=== PATIENT | female | born 1965 | race Caucasian/White ===

== ENCOUNTER 2019-08-12 10:49 | Emergency (ER) | payer OTHER ==
[2019-08-12] MEDS ORDERED: LORazepam 2 MG/ML SDV IVPUSH ONE (10:56)
[2019-08-12] MEDS ORDERED: Haloperidol Lactate 5 MG/ML SDV IVPUSH ONE (10:56)
[2019-08-12] MEDS ORDERED: diphenhydrAMINE 50 MG/ML SDV IVPUSH ONE (10:56)
[2019-08-12] MEDS ORDERED: Metoprolol Tartrate 5 MG/5 ML SDV IVPUSH ONE (10:57)
[2019-08-12] MEDS ORDERED: Ketorolac 60 MG/2 ML SDV IM ONE (11:21)
--- NOTE | 2019-08-12 11:27 | EDM.PDOC ---
ED HPI GENERAL MEDICAL PROBLEM - General Chief Complaint: Lower Extremity Injury/Pain Stated Complaint: LT ANKLE PAIN Time Seen by Provider: 08/12/19 11:10 Source of Information: Reports: Patient History Limitations: Reports: Other (no old records) - History of Present Illness INITIAL COMMENTS - FREE TEXT/NARRATIVE: 54 yo female from [facility] presents with onset 2 days ago of redness, pain, and swelling of her medial L ankle area. She has been taking ibuprofen 800 mg every 6 hrs for this with her last dose before bed last night. Her problem is slightly better now than it was. She denies injury. No hx of the same. No hx of gout or known FHx of gout. Area even sensitive to light touch. Onset: Sudden Onset Date: 08/10/19 Duration: Day(s): (2), Improving Location: Reports: Lower Extremity, Left Quality: Reports: Sharp Severity: Moderate Improves with: Reports: Rest Worsens with: Reports: Movement (or touching area) Context: Reports: Other (See HPI) Associated Symptoms: Reports: Rash (red area medial L ankle and foot). Denies: Diaphoresis, Fever/Chills, Nausea/Vomiting Treatments [employer]: Reports: NSAIDS Left Ankle Pain Score (Numeric/FACES): 5 - Related Data Allergies Allergy/AdvReac Type Severity Reaction Status Date / Time Sulfa (Sulfonamide Allergy Rash Verified 08/12/19 11:08 Antibiotics) Home Meds: Home Meds cephALEXin [Cephalexin] 500 mg PO Q6H #36 capsule 08/12/19 [Rx] estradioL [Estradiol] 1 mg PO DAILY 08/12/19 [History] Past Medical History HEENT History: Reports: None Cardiovascular History: Reports: None Respiratory History: Reports: None Gastrointestinal History: Reports: Cholelithiasis 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: vaginal 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 Musculoskeletal History: Reports: None Neurological History: Reports: None Psychiatric History: Reports: None Endocrine/Metabolic History: Reports: None Hematologic History: Reports: None Immunologic History: Reports: None Oncologic (Cancer) History: Reports: None Dermatologic History: Reports: None - Infectious Disease History Infectious Disease History: Reports: None - Past Surgical History GI Surgical History: Reports: Appendectomy, Cholecystectomy Female Surgical History: Reports: Hysterectomy, Salpingo-Oophorectomy, Other (See Below) Other Female Surgeries/Procedures: bladder sling Social & Family History - Tobacco Use Smoking Status *Q: Never Smoker - Caffeine Use Caffeine Use: Reports: Coffee - Recreational Drug Use Recreational Drug Use: No Review of Systems - Review of Systems Review Of Systems: See Below Constitutional: Reports: No Symptoms Musculoskeletal: Reports: Joint Pain (L ankle) Skin: Reports: Erythema (L medial ankle and foot). Denies: Rash, Wound ED EXAM, GENERAL - Physical Exam Exam: See Below Exam Limited By: No Limitations General Appearance: Alert, WD/WN, No Apparent Distress Extremities: Increased Warmth (L medial ankle and foot), Redness (L medial ankle and foot), Other (pain with passive L ankle ROM) Neurological: Alert, Oriented, CN II-XII Intact, Normal Cognition, No Motor/ Sensory Deficits Psychiatric: Normal Affect, Normal Mood Skin Exam: Warm, Dry, Intact, No Rash, Erythema (L medial ankle and foot), Increased Warmth (L medial ankle and foot.). No: Ecchymosis, Lymphangitis, Wound/Incision, Zoster-Like Rash Course - Vital Signs Text/Narrative:: aspirated L ankle joint fluid, uric acid level WNL's. Will tx for cellulitis. Last Recorded V/S: Last Vital Signs Temp 36.8 C 08/12/19 11:06 Pulse 86 08/12/19 11:06 Resp 16 08/12/19 11:06 BP 148/76 H 08/12/19 11:06 Pulse Ox 98 08/12/19 11:06 - Orders/Labs/Meds Labs: Laboratory Tests 08/12/19 Range/Units 11:45 Fluid Type Synovial fluid Fluid Uric Acid 2.7 mg/dL Meds: Medications Discontinued Medications Generic Name Dose Route Start Last Admin Trade Name Celina PRN Reason Stop Dose Admin Cephalexin 1,000 mg 08/12/19 12:27 Keflex PO 08/12/19 12:28 ONETIME ONE Diphenhydramine HCl 25 mg 08/12/19 10:56 Benadryl IVPUSH 08/12/19 10:57 ONETIME ONE Haloperidol Lactate 5 mg 08/12/19 10:56 Haldol IVPUSH 08/12/19 10:57 ONETIME ONE Ketorolac Tromethamine 60 mg 08/12/19 11:21 08/12/19 11:29 Toradol IM 08/12/19 11:22 60 mg ONETIME ONE Administration Lidocaine HCl 5 ml 08/12/19 11:21 08/12/19 11:29 Xylocaine-Mpf 1% INJECT 08/12/19 11:22 5 ml ONETIME ONE Administration Lorazepam 0.5 mg 08/12/19 10:56 Ativan IVPUSH 08/12/19 10:57 ONETIME ONE Methylprednisolone Acetate Confirm 08/12/19 11:36 Depo-Medrol Administered 08/12/19 11:37 Dose 40 mg .ROUTE .STK-MED ONE Methylprednisolone Acetate 40 mg 08/12/19 11:42 08/12/19 11:45 Depo-Medrol IARTIC 08/12/19 11:43 40 mg ONETIME ONE Administration Metoprolol Tartrate 5 mg 08/12/19 10:57 Lopressor IVPUSH 08/12/19 10:58 ONETIME ONE Departure - Departure Time of Disposition: 12:35 Disposition: Home, Self-Care 01 Condition: Fair Clinical Impression: Cellulitis Qualifiers: Site of cellulitis: extremity Site of cellulitis of extremity: lower extremity Laterality: left Qualified Code(s): L03.116 - Cellulitis of left lower limb - Discharge Information *PRESCRIPTION DRUG MONITORING PROGRAM REVIEWED*: No *COPY OF PRESCRIPTION DRUG MONITORING REPORT IN PATIENT MANFRED: No Prescriptions: cephALEXin [Cephalexin] 500 mg PO Q6H #36 capsule Referrals: PCP,None [Primary Care Provider] - Forms: ED Department Discharge Additional Instructions: Rest. Elevated foot above heart level. Acetaminophen 1000 mg every 6 hrs for pain relief. Add ibuprofen 400 mg every 6 hrs for added relief as needed. Cephalexin as directed. Recheck tomorrow in urgent care. Sepsis Event Note (ED) - Evaluation Sepsis Screening Result: No Definite Risk - Focused Exam Vital Signs: Vital Signs Temp Pulse Resp BP Pulse Ox 08/12/19 11:06 36.8 C 86 16 148/76 H 98
[2019-08-12] MEDS ORDERED: methylPREDNISolone Acetate 40 MG/ML SDV ONE (11:36)
[2019-08-12] MEDS ORDERED: methylPREDNISolone Acetate 40 MG/ML SDV IARTIC ONE (11:42)
[2019-08-12] MEDS ORDERED: Cephalexin 250 MG Cap PO ONE (12:27)
== END 2019-08-12 12:54 | disposition home or self-care (01) ==
LOC: JP.ED 10:49
DX: L03.116 Cellulitis of left lower limb (principal); Z88.2 Allergy status to sulfonamides
CPT/HCPCS: 84560; 96372; 99283; A9270; J1030; J1885; J2001